=== PATIENT | male | born 1935 | race Caucasian/White ===

== ENCOUNTER 2017-04-13 11:21 | Outpatient (CLI) | payer MEDICARE, OTHER | END 2017-04-13 15:53 | disposition home or self-care (01) | LOC: HPC 11:21 | DX: Z09 Encounter for follow-up examination after completed treatment for conditions other than malignant neoplasm (principal); T18.4XXD Foreign body in colon, subsequent encounter; X58.XXXD Exposure to other specified factors, subsequent encounter | CPT/HCPCS: G0463 ==